=== PATIENT | male | born 1960 | race Hispanic/Latino ===

== ENCOUNTER 2017-01-30 03:20 | Emergency (ER) | payer OTHER ==
[2017-01-30 03:21] VITALS: BMI 32.9
[2017-01-30 03:27] VITALS: BP 134/92; PULSE 102; RESP 20; TEMP 99.2; O2SAT 95
--- NOTE | 2017-01-30 03:44 | ED PDOC ---
Arrival/HPI - General Chief Complaint: Abdominal Pain Time Seen by Provider: 01/30/17 03:27 Historian: Patient - History of Present Illness Narrative History of Present Illness (Text): 01/30/17 03:41 Magno Seals is a 56 year old male, with a history of diverticulitis in 2013, presents to the emergency department complaining of left lower quadrant abdominal pain associated with subjective fever and diarrhea. States that symptoms initially presented at 6 pm after eating dinner and was getting progressively worse throughout the night. Currently states that pain has improved. Reports that symptoms are same as pervious episodes of diverticulitis. Denies any nausea or vomiting. Time/Duration: Other (since 6 pm last night ) Symptom Onset: Gradual Symptom Course: Improving Severity Level: Mild Activities at Onset: Light Past Medical History - Provider Review Nursing Documentation Reviewed: Yes - Tetanus Immunization Tetanus Immunization: Unknown - Cardiac Hx Cardiac Disorders: No - Pulmonary Hx Respiratory Disorders: No - Neurological Hx Neurological Disorder: No - HEENT Hx HEENT Disorder: No - Renal Hx Renal Disorder: No - Endocrine/Metabolic Hx Endocrine Disorders: No - Hematological/Oncological Hx Blood Disorders: No - Integumentary Hx Dermatological Disorder: No - Musculoskeletal/Rheumatological Hx Musculoskeletal Disorders: No - Gastrointestinal Hx Gastrointestinal Disorders: Yes Hx Diverticulitis: Yes Hx Gastroesophageal Reflux: Yes - Genitourinary/Gynecological Hx Genitourinary Disorders: No - Psychiatric Hx Psychophysiologic Disorder: No Hx Substance Use: No - Surgical History Hx Appendectomy: Yes Family/Social History - Physician Review Nursing Documentation Reviewed: Yes Family/Social History: No Known Family HX Smoking Status: Never Smoked Hx Alcohol Use: No Hx Substance Use: No Allergies/Home Meds Allergies/Adverse Reactions: Allergies No Known Allergies Allergy (Verified 02/15/14 22:58) Review of Systems - Physician Review All systems were reviewed & negative as marked: Yes - Review of Systems Constitutional: Fevers. absent: Fatigue, Night Sweats Respiratory: Normal. absent: SOB, Cough Cardiovascular: Normal. absent: Chest Pain, Palpitations Gastrointestinal: Abdominal Pain (LLQ ), Diarrhea. absent: Nausea, Vomiting Genitourinary Male: Normal Neurological: Normal Psychiatric: Normal Physical Exam Vital Signs Reviewed: Yes Vital Signs Temp Pulse Resp BP Pulse Ox 01/30/17 03:26 99.2 F 102 H 20 134/92 H 95 Temperature: Afebrile Blood Pressure: Normal Pulse: Tachycardic Respiratory Rate: Normal Appearance: Positive for: Well-Appearing, Non-Toxic, Comfortable Pain Distress: None Mental Status: Positive for: Alert and Oriented X 3 - Systems Exam Head: Present: Atraumatic, Normocephalic Pupils: Present: PERRL Conjunctiva: Present: Normal Mouth: Present: Moist Mucous Membranes Respiratory/Chest: Present: Clear to Auscultation, Good Air Exchange. No: Respiratory Distress, Accessory Muscle Use Cardiovascular: Present: Regular Rate and Rhythm, Normal S1, S2. No: Murmurs Abdomen: Present: Tenderness (LLQ tenderness ), Normal Bowel Sounds. No: Distention, Peritoneal Signs, Rebound, Guarding Upper Extremity: Present: Normal Inspection. No: Cyanosis, Edema Lower Extremity: Present: Normal Inspection. No: Edema Neurological: Present: GCS=15, CN II-XII Intact, Speech Normal, Motor Func Grossly Intact, Normal Sensory Function Skin: Present: Warm, Dry, Normal Color. No: Rashes Psychiatric: Present: Alert, Oriented x 3, Normal Insight, Normal Concentration Medical Decision Making ED Course and Treatment: 01/30/17 04:00 Pt wishes to attempt empiric abx, does not wish for further testing at this time which I feel is reasonable as he appears well, pain is mild, and abdomen is bengin. Will discharge him home on Flagyl and Cipro. Advised to f/u with PMD within few days and present to emergency department for new/worsening symptoms. - Medication Orders Current Medication Orders: Discontinued Medications Ciprofloxacin (Cipro) 500 mg PO STAT STA PRN Reason: Protocol Stop: 01/30/17 03:39 Last Admin: 01/30/17 03:46 Dose: 500 mg Metronidazole (Flagyl) 500 mg PO STAT STA PRN Reason: Protocol Stop: 01/30/17 03:39 Last Admin: 01/30/17 03:47 Dose: 500 mg - Scribe Statement The provider has reviewed the documentation as recorded by the Arjun Jaquez Provider Attestation: Provider Scribe Attestation: All medical record entries made by the Scribreed were at my direction and personally dictated by me. I have reviewed the chart and agree that the record accurately reflects my personal performance of the history, physical exam, medical decision making, and the department course for this patient. I have also personally directed, reviewed, and agree with the discharge instructions and disposition. Disposition/Present on Arrival - Present on Arrival Any Indicators Present on Arrival: No History of DVT/PE: No History of Uncontrolled Diabetes: No Urinary Catheter: No History of Decub. Ulcer: No History Surgical Site Infection Following: None - Disposition Have Diagnosis and Disposition been Completed?: Yes Diagnosis: Diverticulitis Disposition: HOSPITALIZED Disposition Time: 03:54 Condition: STABLE Discharge Instructions (ExitCare): Diverticulitis (ED) Additional Instructions: Please follow up with your doctor. Return to the ER for any worsening symptoms, if you are not improved after 48 hours, or for any other concerns. Prescriptions: Ciprofloxacin [Cipro] 500 mg PO BID #19 tab Metronidazole [Flagyl] 500 mg PO TID #29 tablet
== END 2017-01-30 04:00 | disposition home or self-care (01) ==
LOC: ED 03:20
DX: K57.92 Diverticulitis of intestine, part unspecified, without perforation or abscess without bleeding (principal)